=== PATIENT | male | born 1980 | race Caucasian/White ===

== ENCOUNTER 2025-09-01 12:48 | Inpatient (IN) | payer OTHER ==
[~2025-09-01] VITALS: Ht 172.7 cm; Wt 123.8 kg
[2025-09-01 12:55] VITALS: O2SAT 97
[2025-09-01 15:25] LABS: BASOPHILS % 0.5 % (0.0-2.0); EOSINOPHILS % 1.4 % (0.0-5.0); HEMATOCRIT. 42.3 % (42.0-52.0); HEMOGLOBIN. 13.8 g/dL (14.0-18.0); LYMPHOCYTES % 20.4 % (20.0-50.0); MEAN PLATELET VOLUME 8.6 fl (7.4-10.4); MONOCYTES % 5.8 % (2.0-8.0); NEUTROPHILS % 71.9 % (40.0-76.0); PLATELET 225 x1000/uL (130-400); RED BLOOD CELL COUNT 5.21 mill/uL (4.7-6.1); RED CELL DISTRIBUTION WIDTH 15.9 % (11.6-14.6)
[2025-09-01 15:30] LABS: CREATININE 0.9 mg/dL (0.6-1.3); UREA NITROGEN BLOOD 8 mg/dL (9-23)
[2025-09-01 15:41] LABS: INR 0.9
[2025-09-01] MEDS ORDERED: PIPERACILLIN/TAZO 3.375G/50ML 50 ML IV SCH (17:26)
[2025-09-01] MEDS ORDERED: ONDANSETRON HCL 4MG/2ML INJ IV PRN (17:30)
[2025-09-01] MEDS ORDERED: MAGNESIUM/ALUMINUM HYDROXIDE/SIMETHICONE 30ML UDC PO PRN (17:30)
[2025-09-01] MEDS ORDERED: DEXTROSE 50% WATER 50ML SYRINGE IV PRN (17:30)
[2025-09-01] MEDS ORDERED: ZOLPIDEM TARTRATE 5MG TABLET PO PRN (20:00)
[2025-09-01] MEDS: INSULIN LISPRO 100 UNITS/ML SUBCUT SCH (21:00)
[2025-09-01] MEDS: BLOOD SUGAR DIAGNOSTIC STRIP TEST SCH (21:00)
[2025-09-01] MEDS: VANCOMYCIN 1.5GM PMX (XELLIA) 300 ML IV NR (22:07)
[2025-09-01] MEDS: SODIUM CHLORIDE 0.9% 1,000 ML IV SCH (22:07)
[2025-09-01] MEDS: PIPERACILLIN/TAZO 3.375G/50ML 50 ML IV SCH (23:13)
[2025-09-01] MEDS: CEFEPIME 2GM/100ML 100 ML IV SCH (23:13)
[2025-09-01 23:31] VITALS: BP 141/90; PULSE 85; RESP 19; TEMP 36.3624
[2025-09-02] VITALS (40 sets, daily range): BP systolic 100–154; BP diastolic 62–89; PULSE 64–108; RESP 13–23; TEMP 35.9–36.9; O2SAT 94–100
[2025-09-02 01:33] LABS: CLARITY URINE CLEAR (CLEAR); COLOR URINE DARK YELLOW (YELLOW); GLUCOSE URINE NEGATIVE (NEGATIVE); KETONES URINE TRACE (NEGATIVE); LEUKOCYTE ESTERASE URINE NEGATIVE (NEGATIVE); NITRITE URINE NEGATIVE (NEGATIVE); OCCULT BLOOD URINE NEGATIVE (NEGATIVE); PH URINE 5.5 (4.5-8.0); PROTEIN URINE TRACE (NEGATIVE); SPECIFIC GRAVITY URINE 1.026 (1.005-1.030); UROBILINOGEN URINE 1.0 E.U./dL (0.2-1.0)
[2025-09-02 01:39] LABS: *AMPHETAMINES SCREEN URINE NEGATIVE (NEGATIVE); *BARBITURATES SCREEN URINE NEGATIVE (NEGATIVE); *BENZODIAZEPINES SCREEN URINE NEGATIVE (NEGATIVE); *COCAINE SCREEN URINE NEGATIVE (NEGATIVE); METHADONE URINE SCREEN NEGATIVE (NEGATIVE)
[2025-09-02 01:40] LABS: CANNABINOID URINE SCREEN NEGATIVE (NEGATIVE); ECSTASY MDMA SCREEN URINE NEGATIVE (NEGATIVE); OPIATES URINE SCREEN NEGATIVE (NEGATIVE); PHENCYCLIDINE URINE SCREEN NEGATIVE (NEGATIVE)
[2025-09-02 02:01] LABS: BACTERIA URINE TRACE; RBC URINE NONE SEEN /hpf (0-2); SQUAMOUS EPITHELIAL CELL URINE FEW /lpf (RARE/1+); WBC URINE 0-2 /hpf (0-2)
[2025-09-02] MEDS: VANCOMYCIN 750MG PREMIX 150 ML IV SCH (04:41)
[2025-09-02 06:52] LABS: BASOPHILS % 0.3 % (0.0-2.0); EOSINOPHILS % 2.0 % (0.0-5.0); HEMATOCRIT. 40.3 % (42.0-52.0); HEMOGLOBIN. 13.4 g/dL (14.0-18.0); LYMPHOCYTES % 20.7 % (20.0-50.0); MEAN PLATELET VOLUME 9.0 fl (7.4-10.4); MONOCYTES % 8.5 % (2.0-8.0); NEUTROPHILS % 68.5 % (40.0-76.0); PLATELET 193 x1000/uL (130-400); RED BLOOD CELL COUNT 4.98 mill/uL (4.7-6.1); RED CELL DISTRIBUTION WIDTH 16.0 % (11.6-14.6)
[2025-09-02] MEDS ORDERED: THROMBIN (BOVINE) 5000 UNITS/VIAL TOP ONE (07:01)
[2025-09-02] MEDS ORDERED: LIDOCAINE HCL/EPINEPHRINE 1%-EPI 1:100,000 20ML VIAL ONE ×2 (07:02→08:11)
[2025-09-02] MEDS ORDERED: GENTAMICIN SULF 40MG/ML 2ML VIAL ONE (07:02)
[2025-09-02 07:09] LABS: CREATININE 0.7 mg/dL (0.6-1.3)
[2025-09-02 07:10] LABS: UREA NITROGEN BLOOD 10 mg/dL (9-23)
[2025-09-02] MEDS ORDERED: ROCURONIUM BROMIDE 10MG/ML VIAL 5ML IV ONE ×2 (07:13→07:18)
[2025-09-02] MEDS ORDERED: PROPOFOL 200MG/20ML VIAL IV ONE ×2 (07:13→08:18)
[2025-09-02] MEDS ORDERED: FENTANYL CITRATE/PF 50MCG/ML 2ML VIAL ONE ×2 (07:13→08:08)
[2025-09-02] MEDS ORDERED: MIDAZOLAM HCL 2 MG/2 ML VIAL ONE (07:13)
[2025-09-02] MEDS ORDERED: ACETAMINOPHEN 1000MG/100ML 100 ML IV ONE (07:16)
[2025-09-02] MEDS ORDERED: FAMOTIDINE 20MG/2ML VIAL IV ONE (07:17)
[2025-09-02] MEDS ORDERED: PHENYLEPHRINE HCL 10MG/ML 1ML IV ONE (07:20)
[2025-09-02] MEDS ORDERED: BACITRACIN 14GM TUBE TOP ONE (08:11)
[2025-09-02] MEDS ORDERED: HYDROMORPHONE HCL/PF 1MG/ML INJ ONE (08:20)
[2025-09-02] MEDS ORDERED: ONDANSETRON HCL 4MG/2ML INJ ONE (08:49)
[2025-09-02] MEDS ORDERED: DEXAMETHASONE 4MG/ML 1ML VIAL ONE (08:49)
[2025-09-02] MEDS ORDERED: ONDANSETRON HCL 4MG/2ML INJ IV PRN (09:15)
[2025-09-02] MEDS ORDERED: LABETALOL 5MG/ML 4ML INJ IV PRN (09:15)
[2025-09-02] MEDS ORDERED: HYDROMORPHONE HCL/PF 1MG/ML INJ IV PRN (09:15)
[2025-09-02] MEDS ORDERED: HYDRALAZINE 20MG/ML VIAL IV PRN (09:15)
[2025-09-02] MEDS ORDERED: NALOXONE HCL 0.4MG/ML VIAL IV PRN (09:30)
[2025-09-02] MEDS ORDERED: NICARDIPINE 100 MG in SODIUM CHLORIDE 0.9% 60 ML IV PRN (10:30)
[2025-09-02] MEDS: PANTOPRAZOLE SODIUM 40 MG/VIAL IV SCH (10:35)
[2025-09-02] MEDS: HYDRALAZINE 20MG/ML VIAL IV PRN (10:35)
[2025-09-02] MEDS ORDERED: LEVETIRACETAM 500 MG in SODIUM CHLORIDE 0.9% 100 ML IV SCH (11:15)
[2025-09-02] MEDS: DEXT 5%/LACTATED RINGERS 1,000 ML IV SCH (11:25)
[2025-09-02] MEDS: LEVETIRACETAM 500MG PREMIX 100 ML IV SCH (11:57)
[2025-09-02] MEDS: CEFAZOLIN 1000MG PREMIX 50ML IV SCH (13:13)
[2025-09-02] MEDS: VANCOMYCIN 1.25GM/250ML IV SCH (13:27)
[2025-09-02] MEDS: MORPHINE SULFATE 4 MG/ML INJ (FOR IV/IM USE) IV PRN (13:28)
[2025-09-02] MEDS ORDERED: CEFAZOLIN SODIUM 1000MG/VIAL IV SCH (14:00)
[2025-09-02] MEDS: CEFEPIME 2GM/100ML 100 ML IV SCH (14:37)
[2025-09-02] MEDS: ACETAMINOPHEN 325MG TABLET PO PRN (17:32)
[2025-09-03] VITALS (65 sets, daily range): BP systolic 102–169; BP diastolic 66–105; PULSE 76–100; RESP 13–27; TEMP 36.9; O2SAT 95–98
[2025-09-03] MEDS: HYDROCODONE/ACETAMINOPHEN 5/325MG TABLET PO PRN (03:12)
[2025-09-03 05:59] LABS: BASOPHILS % 0.2 % (0.0-2.0); EOSINOPHILS % 0.3 % (0.0-5.0); HEMATOCRIT. 37.9 % (42.0-52.0); HEMOGLOBIN. 12.3 g/dL (14.0-18.0); LYMPHOCYTES % 10.5 % (20.0-50.0); MEAN PLATELET VOLUME 8.8 fl (7.4-10.4); MONOCYTES % 8.4 % (2.0-8.0); NEUTROPHILS % 80.6 % (40.0-76.0); PLATELET 196 x1000/uL (130-400); RED BLOOD CELL COUNT 4.62 mill/uL (4.7-6.1); RED CELL DISTRIBUTION WIDTH 16.1 % (11.6-14.6)
[2025-09-03 06:31] LABS: CREATININE 0.7 mg/dL (0.6-1.3); UREA NITROGEN BLOOD 5 mg/dL (9-23)
[2025-09-03] MEDS: VANCOMYCIN 1.5GM PMX (XELLIA) 300 ML IV SCH (19:39)
[2025-09-04] VITALS (51 sets, daily range): BP systolic 98–164; BP diastolic 65–101; PULSE 78–99; RESP 11–24; TEMP 36.7–37.1; O2SAT 96–100
[2025-09-04 06:58] LABS: BASOPHILS % 0.4 % (0.0-2.0); EOSINOPHILS % 1.2 % (0.0-5.0); HEMATOCRIT. 37.9 % (42.0-52.0); HEMOGLOBIN. 12.5 g/dL (14.0-18.0); LYMPHOCYTES % 16.3 % (20.0-50.0); MEAN PLATELET VOLUME 9.1 fl (7.4-10.4); MONOCYTES % 9.5 % (2.0-8.0); NEUTROPHILS % 72.6 % (40.0-76.0); PLATELET 200 x1000/uL (130-400); RED BLOOD CELL COUNT 4.67 mill/uL (4.7-6.1); RED CELL DISTRIBUTION WIDTH 15.9 % (11.6-14.6)
[2025-09-04 07:13] LABS: CREATININE 0.6 mg/dL (0.6-1.3); UREA NITROGEN BLOOD 6 mg/dL (9-23)
[2025-09-05] VITALS: BP 132/86; PULSE 90; RESP 18; TEMP 36.3; O2SAT 97
[2025-09-05 04:00] VITALS: BP 120/78; PULSE 76; RESP 18; TEMP 36.4; O2SAT 99
[2025-09-05 08:00] VITALS: BP 133/84; PULSE 79; RESP 18; TEMP 36.7; O2SAT 98
[2025-09-05 12:00] VITALS: BP 123/86; PULSE 86; RESP 17; TEMP 36.5; O2SAT 99
[2025-09-05 16:00] VITALS: BP 136/85; PULSE 82; RESP 16; TEMP 36.7; O2SAT 97
[2025-09-05] MEDS ORDERED: SITA100T11 MT (17:06)
[2025-09-05] MEDS ORDERED: GLIM4TAB36 PO (17:06)
[2025-09-05] MEDS ORDERED: ROSU40TA MT (17:06)
[2025-09-05] MEDS ORDERED: HYDR5TAB13 PO (17:06)
[2025-09-05] MEDS ORDERED: SITA1TAB6 MT (17:06)
[2025-09-05] MEDS ORDERED: *PATIENT'S OWN MEDICATION STORAGE XX SCH (17:45)
[2025-09-05 20:00] VITALS: BP 118/82; PULSE 74; RESP 17; TEMP 36.6; O2SAT 98
[2025-09-06] VITALS: BP 132/89; PULSE 72; RESP 18; TEMP 36.3; O2SAT 97
[2025-09-06 04:00] VITALS: BP 132/92; PULSE 75; RESP 19; TEMP 36.6; O2SAT 96
[2025-09-06 08:00] VITALS: BP 126/87; PULSE 73; RESP 19; TEMP 36.8; O2SAT 97
[2025-09-06 12:00] VITALS: BP 127/82; PULSE 76; RESP 17; TEMP 36.7; O2SAT 98
[2025-09-06 16:00] VITALS: BP 140/91; PULSE 78; RESP 19; TEMP 36.6; O2SAT 97
[2025-09-07] MEDS ORDERED: LIDOCAINE HCL 1% 10 MG/ML 10ML VIAL ONE (07:30)
[2025-09-07 08:00] VITALS: BP 155/91; PULSE 68; RESP 18; TEMP 36.2; O2SAT 99
[2025-09-07] MEDS: CLONIDINE 0.1MG TABLET PO PRN (09:34)
[2025-09-07 12:00] VITALS: BP 144/61; PULSE 69; RESP 17; TEMP 36.3; O2SAT 100
[2025-09-07 16:00] VITALS: BP 149/64; PULSE 76; RESP 18; TEMP 36.5; O2SAT 98
[2025-09-07 20:00] VITALS: BP 153/89; PULSE 72; RESP 19; TEMP 36.5; O2SAT 99
[2025-09-08] VITALS: BP 158/82; PULSE 75; RESP 18; TEMP 36.7; O2SAT 98
[2025-09-08 04:00] VITALS: BP 148/76; PULSE 88; RESP 18; TEMP 36.5; O2SAT 100
[2025-09-08 08:00] VITALS: BP 142/62; PULSE 79; RESP 18; TEMP 36.4; O2SAT 99
[2025-09-08 12:00] VITALS: BP 143/63; PULSE 77; RESP 18; O2SAT 99
[2025-09-08 16:00] VITALS: BP 152/64; PULSE 70; RESP 17; TEMP 36.4; O2SAT 100
[2025-09-08 20:00] VITALS: BP 144/79; PULSE 77; RESP 16; TEMP 37.1; O2SAT 97
[2025-09-09] VITALS: BP 144/79; PULSE 77; RESP 16; TEMP 37.1
[2025-09-09 04:00] VITALS: BP 145/79; PULSE 71; RESP 17; TEMP 36.9; O2SAT 96
[2025-09-09 08:00] VITALS: BP 170/83; PULSE 68; RESP 18; TEMP 36.6; O2SAT 99
[2025-09-09 12:00] VITALS: BP 131/58; PULSE 73; RESP 17; TEMP 36.5; O2SAT 100
[2025-09-09 15:00] VITALS: BP 131/58; PULSE 73; RESP 18; TEMP 97.7
[2025-09-09 16:00] VITALS: BP 150/76; PULSE 75; RESP 20; TEMP 36.4; O2SAT 99
== END 2025-09-09 16:41 | disposition home health service (06) | DRG 950 ==
LOC: ER 12:48 → EDBEDREQTM 16:45 → EDBEDREQ 16:45 → ENRESERV 21:46 → 8EST 22:28 → MICUNO 09-02 09:28 → 8EST 09-04 23:43
PROVIDERS: ADMIT Internal Medicine; ATTEND Internal Medicine
PROC: 00930ZZ Drainage of Intracranial Epidural Space, Open Approach (ICD-10-PCS; principal; 2025-09-06)
PROC: 00U207Z Supplement Dura Mater with Autologous Tissue Substitute, Open Approach (ICD-10-PCS; 2025-09-06)
DX: E11.69 Type 2 diabetes mellitus with other specified complication (principal); G06.0 Intracranial abscess and granuloma; G93.40 Encephalopathy, unspecified; T86.832 Bone graft infection; M86.18 Other acute osteomyelitis, other site; T81.30XA Disruption of wound, unspecified, initial encounter; I10 Essential (primary) hypertension; Y83.8 Other surgical procedures as the cause of abnormal reaction of the patient, or of later complication, without mention of misadventure at the time of the procedure; Z22.321 Carrier or suspected carrier of Methicillin susceptible Staphylococcus aureus; Y92.89 Other specified places as the place of occurrence of the external cause; Z85.841 Personal history of malignant neoplasm of brain
CPT/HCPCS: 36415; 71045; 77001; 80048; 80202; 80305; 81003; 82962; 84145; 84443; 85025; 86850; 86900; 87070; 87075; 87077; 87102; 87116; 87186; 88300; 93005; 93970; 96365; 97110; 97116; 97162; 97166; 97530; 97535; 99285; A4606; C1725; J0360; J0690; J0692; J1100; J1171; J1308; J1580; J1815; J1953; J2003; J2004; J2250; J2270; J2371; J2405; J2470; J2543; J2704; J3010; J3373; J3490; J7050; J7121; J0131